=== PATIENT | female | born 1955 | race Caucasian/White ===

== ENCOUNTER 2019-08-17 16:06 | Inpatient (IN) ==
--- NOTE | 2019-08-17 16:14 | PROVIDER DOCUMENTATION ---
HPI-Screening - General Chief Complaint: Back Pain Stated Complaint: BACK PAIN LEG PAIN FEET PAIN Time Seen by Provider: 08/17/19 16:10 Source: patient Allergies/Adverse Reactions: Allergies Allergy/AdvReac Type Severity Reaction Status Date / Time NSAIDS (Non-Steroidal AdvReac SWELLING Verified 12/23/18 16:15 Anti-Inflamma Home Medications: Home Medication List Medication Instructions Recorded Confirmed Last Taken Type Tiotropium [place] Inhaler 2 puff INH DAILY 04/17/15 02/16/19 01/11/17 06:00 History [Spiriva] ATORVAstatin [Lipitor] 80 mg PO QAM 01/08/17 02/16/19 01/11/17 06:00 History Diltiazem HCl [Cartia Xt] 240 mg PO DAILY 01/08/17 02/16/19 01/11/17 06:00 History Multivitamin with Minerals 1 each PO DAILY 01/08/17 02/16/19 01/11/17 06:00 History [Multiple Vitamin] Pantoprazole [Protonix] 40 mg PO DAILY 01/08/17 02/16/19 01/11/17 06:00 History Aspirin 325 mg PO DAILY 02/16/19 02/16/19 Unknown History Isosorbide Mononitrate [Isosorbide 30 mg PO DAILY 02/16/19 02/16/19 Unknown History Mononitrate ER] Nitroglycerin 0.4 mg SUBLINGUAL PRN PRN 02/16/19 02/16/19 Unknown History Patient arrived via EMS?: No HPI: Patient is a 64 yowf who presents to the ED with multiple complaints. States she has had generalized weakness, dizziness, lower back pain, a cough, and bilateral calf and foot pain. Physical Exam-Screening - CONSTITUTIONAL General Appearance: alert, no apparent distress. negative: lethargic, slow to respond - HEAD, EARS, NOSE, MOUTH & THROAT HENMT: normocephalic/atraumatic - RESPIRATORY Respiratory: lungs clear, normal breath sounds, increased rate (tachypnea noted on exam). negative: stridor, wheezing - CARDIOVASCULAR Cardiovascular: no murmur (systolic) Screening Depart - Departure ED Screening Disposition: Continued in ED for Treatment (sepsis orders initiated by prepress proofer due to triage VS.) Referrals and Follow-Ups: Cade Vera MD [Primary Care Provider] - Attestation - Physician/ ZI Attestation Patient care was provided by Advanced Practice Provider:: Yes Advanced Practice Provider:: Nai Newberry Advanced Practice Provider documentation review:: The Mid-level provider documentation, treatment plan and medical decision making was reviewed by the physician who agrees with all treatment and medical decision making by the MLP. The physician spent face to face time with patient:: No Advanced Practice Provider documentation review:: Supervising physician onsite and consulted in the evaluation and care of this patient. The physician did not have a face to face encounter with the patient.
--- NOTE | 2019-08-17 16:38 | Diag Imaging Result Doc PS360 ---
EXAM: CHEST-2 VIEWS 08/17/2019 HISTORY: cough, weakness, dizziness TECHNIQUE: PA and lateral chest COMMENT: There is calcification of the aorta. There are calcified miliary nodules throughout both lungs. There are some coronary calcification. There are larger granulomata present in the right lower lobe and left upper lobe. Compared to the previous examination of 10/31/2018 there has been no significant change. IMPRESSION: Granulomatous changes and atherosclerosis. No evidence of acute disease. Electronically signed by Miah Augustine 08/17/2019 4:36 PM
[2019-08-17 16:48] LABS: BASO# 0.04 X1000 (0.0-0.2); BASO% 0.5 % (0.0-0.8); EOS# 0.07 X1000 (0.0-0.7); EOS% 0.9 % (0.0-10.0); HEMATOCRIT 21.2 % (37.0-47.0); IMM GRAN# 0.03 X1000 (0.0-0.04); IMM GRAN% 0.4 % (0.0-0.5); LYMPH# 2.19 X1000 (1.2-3.4); LYMPH% 27.3 % (20.5-51.1); MCHC 27.8 g/dL (33-37); MCV 75.4 FL (81-99); MONO# 0.74 X1000 (0.11-0.59); MONO% 9.2 % (1.7-9.3); MPV 10.5 FL (7.4-10.4); NEUT# 4.95 X1000 (1.4-6.5); NEUT% 61.7 % (42.2-75.2); PLT 198 X1000 (130-400); RBC 2.81 XMIL (4.2-5.4); RDW 20.1 % (11.5-14.5); WBC 8.02 X1000 (4.8-10.8)
[2019-08-17 16:50] LABS: HEMOGLOBIN 5.9 g/dL (12.0-16.0)
[2019-08-17 16:51] LABS: INR 1.12; PROTIME 14.6 Seconds (11.0-16.0)
[2019-08-17] MEDS ORDERED: NS 500 ML IV ONE (16:51)
[2019-08-17 16:52] LABS: PTT 30.5 Seconds (22.3-41.8)
[2019-08-17 17:02] LABS: AGAP 16; ALB/GLOB RATIO 1.8; ALBUMIN 4.1 g/dL (3.5-5.0); ALKALINE PHOSPHATASE 133 U/L (32-104); BUN 24 mg/dL (8-22); CALCIUM 9.7 mg/dL (8.8-10.2); CHLORIDE 104 mmol/L (98-107); CK PROFILE 164 U/L (24-173); COSMO 283; CREATININE 0.9 mg/dL (0.5-0.9); ESTIMATED GFR > 60; GLUCOSE 91 mg/dL (70-104); GOT 18 U/L (10-30); GPT 8 U/L (10-36); POTASSIUM 3.8 mmol/L (3.5-5.1); SODIUM 140 mmol/L (136-145); TCO2 20 mmol/L (25-35); TOTAL BILIRUBIN 0.51 mg/dL (0.20-1.00); TOTAL PROTEIN 6.4 g/dL (6.3-8.3)
--- NOTE | 2019-08-17 17:03 | EKG Report ---
Test Performed on : 08/17/2019 4:22:19 PM Test Reason : dizziness Blood Pressure : / mmHG Vent. Rate : 090 BPM Atrial Rate : 090 BPM P-R Int : 134 ms QRS Dur : 088 ms QT Int : 378 ms P-R-T Axes : 066 009 076 degrees QTc Int : 462 ms Normal sinus rhythm. Nonspecific ST and T wave abnormality Abnormal ECG When compared with ECG of 16-FEB-2019 14:51, Nonspecific T wave abnormality, worse in Lateral leads Unconfirmed Result
[2019-08-17 17:12] LABS: ANISOCYTOSIS 1+; LARGE PLATELETS OCCASIONAL; LYMPHS 18 % (21-51); MONO 5 % (1-9); SEGS 76 % (42-75)
[2019-08-17 17:13] LABS: HYPOCHROM 1+; TARGET CELLS OCCASIONAL
[2019-08-17 17:24] LABS: URINE SOURCE CLEAN CATCH
[2019-08-17 17:29] LABS: BILIRUBIN URINE NEGATIVE (NEGATIVE); BLOOD URINE NEGATIVE (NEGATIVE); COLOR YELLOW; GLUCOSE URINE NEGATIVE (NEGATIVE); KETONE URINE NEGATIVE (NEGATIVE); LEUKOCYTES URINE LARGE (NEGATIVE); NITRITE URINE POSITIVE (NEGATIVE); PH URINE 6.5; PROTEIN URINE TRACE mg/dL (NEGATIVE); TURBIDITY URINE CLEAR (CLEAR); UROBILINOGEN URINE NORMAL (NORMAL)
[2019-08-17 17:30] LABS: UR EPITHELIAL CELLS <10 /HPF (<10); URINE BACTERIA 4+ /HPF; URINE RBC <10 /HPF (<10); URINE WBC 20-40 /HPF (<10)
[2019-08-17] MEDS ORDERED: ROCEPHIN IV ONE (17:33)
[2019-08-17] MEDS ORDERED: NS 1,000 ML IV ONE (17:33)
[2019-08-17] MEDS ORDERED: PROTONIX 80 MG in NS 80 ML IV ONE (17:45)
--- NOTE | 2019-08-17 18:03 | PROVIDER DOCUMENTATION ---
This chart was entered by Citlalli Alvarez Scribe, acting as scribe for Chiquita Hairston MD. HPI-General Adult - General Chief Complaint: Back Pain Stated Complaint: BACK PAIN LEG PAIN FEET PAIN Time Seen by Provider: 08/17/19 16:10 Source: patient Allergies/Adverse Reactions: Patient Allergies Allergy/AdvReac Type Severity Reaction Status Date / Time NSAIDS (Non-Steroidal AdvReac SWELLING Verified 08/17/19 17:09 Anti-Inflamma Home Medications: Home Medication List Medication Instructions Recorded Confirmed Last Taken Type Tiotropium [place] Inhaler 2 puff INH DAILY 04/17/15 08/17/19 08/17/19 08:00 History [Spiriva] ATORVAstatin [Lipitor] 80 mg PO QAM 01/08/17 08/17/19 08/16/19 20:00 History Diltiazem HCl [Cartia Xt] 240 mg PO DAILY 01/08/17 08/17/19 08/17/19 07:00 History Pantoprazole [Protonix] 40 mg PO DAILY 01/08/17 08/17/19 08/17/19 07:00 History Isosorbide Mononitrate [Isosorbide 30 mg PO DAILY 02/16/19 08/17/19 08/17/19 07:00 History Mononitrate ER] Clopidogrel [Plavix] 75 mg PO DAILY 08/17/19 08/17/19 08/17/19 07:00 History - History of Present Illness -Gen Adult Nature of Presenting Problems: Patient is a 64 year old female who presents with multiple complaints. Patient states symptoms of back pain, bilateral leg pain, dizziness and weakness. Denies shortness of breath. Location of Pain/Injury: reports: back, lower extremity (bilateral lower legs) Pain Radiation: reports: no radiation Quality of Pain: reports: aching Severity: reports: mild Onset/Duration: reports: unsure Timing: reports: still present Context/Activities at Onset: reports: light activity Modifying Factors: worse with: other (walking) Associated Symptoms: reports: dizziness, weakness Similar Symptoms Previously?: Yes Recently seen or treated by another doctor?: No Review of Systems - Adult - REVIEW OF SYSTEMS - ADULT Constitutional: reports: no symptoms reported Eyes: reports: no symptoms reported Ears, Nose, Mouth & Throat: reports: no symptoms reported Cardiovascular: reports: no symptoms reported Respiratory: reports: no symptoms reported Gastrointestinal: reports: no symptoms reported Genitourinary: reports: no symptoms reported Musculoskeletal: reports: see HPI, back pain, muscle weakness, other (bilateral lower leg pain). denies: muscle aches Integumentary: reports: no symptoms reported Neurological: reports: see HPI, dizziness/vertigo. denies: headache/migraines, syncope Psychiatric: reports: no symptoms reported Endocrine: reports: no symptoms reported Hematologic/Lymphatic: reports: no symptoms reported Allergic/Immunologic: reports: no symptoms reported All Other Systems: Reviewed and Negative Past History - Adult - PAST MEDICAL HISTORY-ADULT Review of Records: reports: Old Records Reviewed, Nursing Assessment Review, Medications Reviewed, Social history reviewed & non-contributory. Major Childhood Illnesses: reports: denies history Cardiovascular: reports: cardiac disease, HTN, [place] Respiratory: reports: asthma, COPD Gastrointestinal: reports: denies history Obstetrical/Gynecological: reports: denies history Genitourinary: reports: denies history Musculoskeletal: reports: denies history Neurological: reports: denies history Psychiatric: reports: denies history Endocrine/Immune: reports: denies history Other Conditions: reports: denies history - PRIOR SURGERIES/PROCEDURES Surgical/Procedure History: reports: reviewed, not pertinent - IMMUNIZATION STATUS Childhood Immunizations: See Nurse Assessment Flu Vaccine: See Nurse Assessment - FAMILY HISTORY Family History: reviewed, not pertinent - SOCIAL HISTORY Smoking: cigarettes, less than 1 pack/day Provider spent 3-5 mins advising pt. on dangers of tobacco.: Discussed manners to quit use, and f/u contacts for add'l counseling. Alcohol Use Frequency: sober (former use) Physical Exam-General - PHYSICAL EXAM-ADULT Initial Vital Signs Reviewed: Yes - CONSTITUTIONAL General Appearance: alert, no apparent distress. negative: lethargic - HEAD, EARS, NOSE, MOUTH & THROAT HENMT: normocephalic/atraumatic, other (poor dentition). negative: angioedema - RESPIRATORY Respiratory: chest non-tender, lungs clear, normal breath sounds. negative: crackles, wheezing - CARDIOVASCULAR Cardiovascular: normal peripheral pulses, regular rate, rhythm. negative: tachycardia - GASTROINTESTINAL (ABDOMEN) Abdominal Exam: normal bowel sounds, non tender, soft. negative: rigid - GENITOURINARY Rectal Exam: hemorrhoids (external). negative: black stool, blood streaked stool, tenderness - MUSCULOSKELETAL Back Exam: normal inspection. negative: ecchymosis, vertebral tenderness Extremity: non-tender, normal inspection. negative: calf tenderness, erythema, swelling - SKIN Integumentary: normal color, normal turgor, warm/dry. negative: ecchymosis - NEUROLOGIC Neurologic: grossly normal, no motor/sensory deficits. negative: aphasia, facial droop - PSYCHIATRIC Psych/Mental Status: normal mood/affect, oriented x 3. negative: anxious Progress - PLAN OF CARE/RESULTS Progress/Plan/Lab Results: Vital Signs - 8 hr 08/17/19 16:08 Temperature 97.8 F Pulse Rate 104 H Respiratory Rate 22 Blood Pressure 159/50 O2 Sat by Pulse Oximetry 100 Orders Category Date Time Status Cardiac Monitoring DIRECTED Care 08/17/19 16:15 Active IV Insertion ORDERED Care 08/17/19 16:15 Active Notify MD of + Sepsis Screen NOW Care 08/17/19 16:15 Active Notify Physician As Ordered Care 08/17/19 16:15 Active Orthostatic Vital Signs NOW Care 08/17/19 16:17 Active CHEST-2 VIEWS [RAD] Stat Exams 08/17/19 16:16 Completed BLOOD CULTURE [BLDCUL] Stat Lab 08/17/19 16:15 Uncollected CBC WITH DIFF [HEME] Stat Lab 08/17/19 16:18 Results CK PROFILE [SP CHEM] Stat Lab 08/17/19 16:18 Received COMPREHENSIVE METABOLIC PANEL [CHEM] Stat Lab 08/17/19 16:18 Received LACTATE, PLASMA [CHEM] Lab 08/17/19 16:15 Uncollected LACTATE, PLASMA [CHEM] Lab 08/17/19 19:15 Uncollected LACTATE, PLASMA [CHEM] Lab 08/17/19 22:15 Uncollected MAGNESIUM [CHEM] Stat Lab 08/17/19 16:17 Uncollected PROTIME WITH INR [COAG] Stat Lab 08/17/19 16:18 Received PTT [COAG] Stat Lab 08/17/19 16:18 Received TROPONIN T Stat Lab 08/17/19 16:18 Received URINALYSIS W/POSS RFLX CULT [URINALYSIS] Stat Lab 08/17/19 16:15 Uncollected Oxygen Device Stat Oth 08/17/19 16:15 Completed EKG [EKG] Stat Ther 08/17/19 16:17 Ordered Result Diagrams: 08/17/19 16:18 08/17/19 16:18 - EKG 1 Time of EKG reading by physician:: 16:22 EKG Read and Signed by:: Chiquita Hairston EKG Interpretation (*Must complete 3 of following elements*): Abnormal Rate: 90 Rhythm: normal sinus rhythm [place]: normal [place] Interval: normal Comments: nonspecific ST and T wave abnormality. Departure - Departure Date of Disposition Decision: 08/17/19 Time of Disposition Decision: 17:46 DIAGNOSIS: Anemia Qualifiers: Anemia type: unspecified type Qualified Code(s): D64.9 - Anemia, unspecified UTI (urinary tract infection) Qualifiers: Urinary tract infection type: site unspecified Hematuria presence: without hematuria Qualified Code(s): N39.0 - Urinary tract infection, site not specified Disposition: ADMITTED INPATIENT 09 Certified Medical Emergency: Emergent Condition: Good Referrals and Follow-Ups: Cade Vera MD [Primary Care Provider] - - Critical Care Note This patient required my direct & personal management of CC.: No Attestation - Physician/ ZI Attestation Patient care was provided by Advanced Practice Provider:: No The physician spent face to face time with patient:: Yes Advanced Practice Provider documentation review:: Supervising physician onsite and consulted in the evaluation and care of this patient. The physician did have a face to face encounter with the patient. This chart was documented by the indicated scribe, (Citlalli Alvarez Scribe) and accurately reflects the services I performed and decisions made by Yovanny chan Mai Huu, MD, as attested by the provider's signature.
[2019-08-17] MEDS ORDERED: NS 50 ML ONE (18:28)
[2019-08-17] MEDS ORDERED: MORPHINE IV ONE (18:40)
[2019-08-17] MEDS: PROTONIX 80 MG in NS 80 ML IV SCH (18:41)
[2019-08-17] MEDS ORDERED: ZOFRAN IV PRN (18:50)
[2019-08-17 20:42] LABS: RETIC% 1.75 % (0.8-2.1); RETIC-HE 16.9 PG (28.2-36.6)
--- NOTE | 2019-08-17 21:26 | HISTORY AND PHYSICAL ---
ADDENDUM: I have seen and examined Ms. Joens today in the emergency room. She presented because of lower back pain and also generalized fatigue, shortness of breath, dizziness upon standing up. Upon presenting to the emergency room, she was evaluated. Her vitals were stable except for pulse of 104. She is orthostatic negative. On her laboratory data, I found out that her hemoglobin was 5.9. Ms. Jnoes has been treated in the past for GI bleed due to gastric AVMs. She said every now and then, she sees her stool being dark/blood in the stool, but that has not happened recently. Currently, her vitals are blood pressure of 159/50, pulse of 104, respirations 22, temperature 97.8 degrees. Physical exam for the most part is unremarkable. Her labs have also been reviewed. As I said, her hemoglobin is 5.9, MCV is 75, white cell count and platelets normal. Chemistry is also within normal range. ASSESSMENT: 1. Symptomatic anemia. 2. Severe microcytic anemia, most likely due to anemia of chronic gastrointestinal blood loss. 3. History of gastric arteriovenous malformations. 4. Clinical volume depletion. 5. History of coronary artery disease, status post coronary artery bypass graft. 6. Chronic pain disorder with chronic lower back pain. Patient uses ibuprofen intermittently at home. We have advised her to stop using nonsteroidal anti-inflammatory medications since those could be potential cause of her gastrointestinal bleed. Ms. Jones is also on clopidogrel which could probably potentiate the gastrointestinal bleed. For now, we are going to keep her n.p.o., continue her with intravenous fluids. She has been grouped and crossmatched for 2 units of packed red blood cells. She is to continue on Protonix drip and we will re-evaluate her in the morning with a repeat hemoglobin and hematocrit. She will be pending a consult by GI. Please refer to the details of the History and Physical that has been dictated by the nurse practitioner in the chart. cc: Aquiles Benoit MD
[2019-08-17] MEDS: NS 1,000 ML IV SCH (21:39)
--- NOTE | 2019-08-17 21:52 | HISTORY AND PHYSICAL ---
PRIMARY CARE PROVIDER: EMRE Bolivar. CHIEF COMPLAINT: Lower back pain, bilateral calf pain, frequent urination, shortness of breath, dizziness, off balance. HISTORY OF PRESENT ILLNESS: Ms. Jones is a 64-year-old female who carries a past medical history of GI bleed secondary to AV malformations x2, COPD, chronic pain disorder, hypothyroidism, coronary artery disease status post [place] x2, status post CABG, cirrhosis, carotid artery disease, status post right and left carotid endarterectomy, who came to the ED with multiple complaints today complaining of lower back pain, bilateral calf pain, trouble ambulating, gives out easy, complains of always being short of breath; however, it has become worse dizziness and off balance, frequent urination. She reported a month ago she had some dark tarry stools. She saw a GI doctor, unsure which , on July 30 and per her account was given a clear report. She also complains of a sore mouth, hard of hearing out of her left side. She hears better out of her right ear. Workup in the ED revealed an hemoglobin and hematocrit of 5.9, 21.2. All other laboratory data was essentially unremarkable. Her urinalysis showed UTI with 4+ bacteria, 20 to 40 WBCs, large leukocytes and positive for nitrites. She was typed and screened. We will do 2 units of blood. She was initiated on IV antibiotics as well as IV Protonix and a GI consult and we placed her in the ICU. Continue IV fluids and NPO status. PAST MEDICAL HISTORY: 1. Coronary artery disease status post [place] x2 and CABG. 2. COPD. 3. Carotid artery disease, status post right and left carotid endarterectomies. 4. GI bleed in the past secondary to AVMs x2. 5. Chronic pain disorder. 6. Cirrhosis. 7. Dyslipidemia. 8. Hypothyroidism. 9. COPD. 10. 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 She hears better on the right. 11. 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 12. Tobacco use and abuse. 13. Chronic kidney disease. PAST SURGICAL HISTORY: 1. CABG. 2. Spinal surgery. 3. Gallbladder surgery. 4. Right middle finger cancer removal x2. 5. Two EGDs for cauteries of AVM. 6. Right and left carotid endarterectomies. 7. Coronary stenting. 8. Right shoulder surgery. ALLERGIES: NSAIDs. FAMILY HISTORY: Positive for CAD in a father in the mid 50s, at the age of 62. SOCIAL HISTORY: She continues to be a smoker, smokes less than a half pack per day has done so since the age of 23. No alcohol or illicit drug use. REVIEW OF SYSTEMS: Completely negative except for those mentioned in HPI. PHYSICAL EXAMINATION: VITAL SIGNS: Temperature is 97.8 degrees, heart rate 104, respirations 22, blood pressure 159/50, O2 is 100% on room air. GENERAL: Ms. Jones is a hard of hearing, 64-year-old female who looks older than her stated age. She is lying on the stretcher in no acute distress. HEENT: Atraumatic, normocephalic. PERRL. Mucous membranes are dry. CARDIOVASCULAR: S1, S2 appreciated. No murmurs, gallops, or rubs noted. RESPIRATORY: Lung sounds clear bilaterally. GI: Is soft, nontender, nondistended. Positive bowel sounds in 4 quadrants. EXTREMITIES: Lower extremities are negative for edema. SKIN: Pale, dry, intact. She also has some bruising noted to her upper extremities. NEUROLOGIC: No focal deficits noted. Again, she is hard of hearing. She hears better out of her right ear. DIAGNOSTIC DATA: Chest x-ray: Granulomatosis changes and atherosclerosis. No evidence of acute disease. LABORATORY DATA: White count 8, H H 5.9 and 21. Platelet count 198,000. Chemistry: Sodium 140, potassium 3.8, BUN 24, creatinine 0.9, blood glucose is 91, magnesium 1.9. Plasma lactate 2.6. Urinalysis 4+ bacteria. WBC 20 to 40, large leukocytes, positive for nitrites. ASSESSMENT AND PLAN: 1. Upper gastrointestinal bleed. The patient has a history of arteriovenous malformations in the past that have had to be cauterized twice. We will type and screen and transfuse with 2 units, place her in the intensive care unit, initiate her on a Protonix drip. Consult Gastroenterology. Hemodynamically, she is currently stable. We will recheck her H H in the a.m. 2. Urinary tract infection. She was given a dose of IV Rocephin. We will check a urine culture. Continue IV antibiotics. She does complain of frequent urination, but no dysuria. Continue on IV fluids. 3. Chronic obstructive pulmonary disease without exacerbation. We will do supplemental O2 breathing treatments p.r.n. 4. Known coronary artery disease. The patient does not complain of any chest pain. 5. Chronic pain syndrome. We will do IV pain regimen. 6. Acute blood loss anemia secondary to #1. 7. Continued tobacco use and abuse. Patient will need continued education on smoking cessation as well as the means to quit. 8. Hypothyroidism. 9. Dyslipidemia. 10. Further recommendation to follow physician evaluation, laboratory and diagnostic data. Dictated by EMRE Vargas for Aquiles Benoit MD cc: MD Merry Landry CRNP
[2019-08-18] MEDS: PROTONIX 80 MG in NS 80 ML IV SCH ×2 (04:00→15:21)
[2019-08-18 06:52] LABS: BASO# 0.03 X1000 (0.0-0.2); BASO% 0.5 % (0.0-0.8); EOS# 0.15 X1000 (0.0-0.7); EOS% 2.6 % (0.0-10.0); IMM GRAN# 0.02 X1000 (0.0-0.04); IMM GRAN% 0.3 % (0.0-0.5); LYMPH# 1.53 X1000 (1.2-3.4); LYMPH% 26.7 % (20.5-51.1); MCH 23.4 PG (27-31); MCHC 29.6 g/dL (33-37); MCV 78.9 FL (81-99); MONO% 10.5 % (1.7-9.3); MPV 11.2 FL (7.4-10.4); NEUT# 3.41 X1000 (1.4-6.5); NEUT% 59.4 % (42.2-75.2); PLT 134 X1000 (130-400); RBC 3.42 XMIL (4.2-5.4); RDW 19.9 % (11.5-14.5); WBC 5.74 X1000 (4.8-10.8)
[2019-08-18 07:25] LABS: AGAP 13; ALB/GLOB RATIO 1.6; ALBUMIN 3.6 g/dL (3.5-5.0); ALKALINE PHOSPHATASE 117 U/L (32-104); BUN 17 mg/dL (8-22); CALCIUM 8.6 mg/dL (8.8-10.2); CHLORIDE 110 mmol/L (98-107); COSMO 284; CREATININE 0.7 mg/dL (0.5-0.9); ESTIMATED GFR > 60; GLUCOSE 80 mg/dL (70-104); GOT 16 U/L (10-30); GPT 7 U/L (10-36); MAGNESIUM 1.9 mg/dL (1.5-2.7); POTASSIUM 3.3 mmol/L (3.5-5.1); SODIUM 142 mmol/L (136-145); TCO2 19 mmol/L (25-35); TOTAL BILIRUBIN 1.85 mg/dL (0.20-1.00); TOTAL PROTEIN 5.9 g/dL (6.3-8.3)
[2019-08-18 09:18] LABS: IRON SATURATION 97 %; TIBC 414 ug/dL; TOTAL IRON 403 ug/dL (49-151); UNBOUND IRON 11 ug/dL (112-346)
[2019-08-18 09:27] LABS: FERRITIN 19 ng/mL (13-150)
[2019-08-18] MEDS: MORPHINE IV PRN ×2 (09:37→17:57)
[2019-08-18] MEDS: NICODERM PATCH TD SCH (11:52)
[2019-08-18] MEDS ORDERED: ROCEPHIN 1 GM in NS 50 ML IV ONE (13:04)
[2019-08-18] MEDS ORDERED: XYLOCAINE-MPF 2% ONE (14:01)
[2019-08-18] MEDS ORDERED: DIPRIVAN 1% ONE ×2 (14:01→14:13)
[2019-08-18] MEDS ORDERED: EPINEPHRINE SYRINGE ONE (14:05)
--- NOTE | 2019-08-18 14:28 | ENDOSCOPY OPERATIVE NOTE ---
[facility] ENDOSCOPY OPERATIVE NOTE , EGD PROCEDURE REPORT EXAM DATE: 08/18/2019 PATIENT NAME: Sarah Jones ATTENDING: Damion Hobson MD MR#: [id number] REFERRING PHYSICIAN: : 1955 CASE#: [id number] STATUS: inpatient INDICATIONS: The patient is a 64 yr old female here for an EGD due to acute post hemorrhagic anemia and melena. PROCEDURE PERFORMED: EGD w/ control of bleeding MEDICATIONS: Per Anesthesia CONSENT: The patient understands the risks and benefits of the procedure and understands that these r isks include, but are not limited to: sedation, allergic reaction, infection, perforation and/or bleeding. Alternative means of evaluation and treatment include, among others: physical exam, x-rays, and/or surgical intervention. The patient elects to proceed with this endoscopic procedure. DESCRIPTION OF PROCEDURE: During intra-op preparation period all mechanical and medical equipment was checked for proper function. Hand hygiene and appropriate measures for infection prevention was taken. After the risks, benefits and alternatives of the procedure were thoroughly explained, Informed consent was verified, confirmed and timeout was successfully executed by the treatment team. The patient was anesthetized with topical anesthesia and the [id number] ([id number]) endoscope was introduced through the mouth and advanced to the second portion of the duoden um. Retroflexion was performed in the stomach and revealed no abnormalities. The gastroscope was then slowly withdraw n and removed. ESOPHAGUS: The mucosa of the esophagus appeared normal. STOMACH: Three spider-like and round arteriovenous malformations measuring 5mm in size were found in the gastric fundus and gastric body. Monopolar cautery with a 7Fr heater probe was applied to the sites for 10 seconds using 25 wong power. Moderate pressure was applied to the cautery site with good treatment effect. The stomach o therwise appeared normal. DUODENUM: The duodenal mucosa showed no abnormalities. ADVERSE EVENTS: There were no complications. IMPRESSIONS: 1. The mucosa of the esophagus appeared normal 2. Three arteriovenous malformations measuring 5mm in size were found in the gastric fundus and james jarred body; Monopolar cautery with a 7Fr heater probe was applied to the sites for 10 secs; with good treatment effect 3. The stomach otherwise appeared normal 4. The duodenal mucosa showed no abnormalities RECOMMENDATIONS: 1. Resume pre-procedure medications 2. Resume previous diet 3. Transfer to ICU Damion Hobson MD eSigned: Damion Hobson MD 08/18/2019 2:27 PM CPT CODES: 42282 Upper gastrointestinal endoscopy including esophagus, stomach, and either the du odenum and/or jejunum as appropriate; with control of bleeding, any method ICD CODES: 285.1 Acute posthemorrhagic anemia 578.1 Blood in stool 747.61 Gastrointestinal vessel anomaly The ICD and CPT codes recommended by this software are interpretations from the data that the [facility] staff has captured with the software. The verification of the translation of this report to the ICD and CPT co main and modifiers is the sole responsibility of the health care institution and practicing physician where this report was generated. [employer] will not be held responsible for the validity of the ICD and CPT codes i ncluded on this report. A assumes no liability for data contained or not contained herein. CPT is a registered tra [employer]ark of the [employer]. PATIENT NAME: Sarah Jones MR#: [id number]
[2019-08-18] MEDS: NS 1,000 ML IV SCH (15:22)
[2019-08-18] MEDS ORDERED: TYLENOL PO PRN (17:25)
[2019-08-18] MEDS: PROTONIX IV SCH (17:58)
--- NOTE | 2019-08-18 18:40 | PROGRESS NOTE ---
DATE: 08/18/2019 SUBJECTIVE: This morning, Ms. Jones refers to be doing well. She thinks she is feeling a little stronger. She did say, however, that she has been having some burning on urination, and from home she was having urinary frequency. Her urinalysis over here is quite pathological with positive nitrates, large leukocytes, and this morning her culture is growing gram negative tomy. I think she is symptomatic, and she will need to be treated. OBJECTIVE: Vital signs: Blood pressure is 131/87, pulse of 81, respirations 20, temperature is 98.1 degrees. Patient is saturating 99% on room air. General: Ms. Jones is a 64-year-old elderly female. She was in bed. She did not seem to be in any cardiopulmonary distress. Mucosa is pink after 2 PRBC transfusions. Chest: Good air entry bilaterally. There were no crepitations, no rhonchi. Cardiovascular: Regular rate and rhythm. There is a 2/6 early systolic murmur in the aortic region which radiates to the neck. There is an old sternotomy scar on the anterior chest wall. Gastrointestinal: Abdomen is soft, nontender. Bowel sounds present. Central nervous system: Patient is awake, alert, and oriented. LABORATORY DATA: WBC is 5.74, hemoglobin is up to 8.0, platelet count of 134,000. Chemistry is also reviewed. Chloride is 110, potassium is 3.3, bicarb is 19. Renal function is normal. Bilirubin is slightly elevated. I think it is related to the transfusion. Folate is normal. Ferritin is 19. Iron is 403. I think that is probably from the transfused sample. So far, urine culture is showing gram-negative tomy. MEDICATIONS: The patient's medications have also been reviewed. She is still on PPI drip, normal saline at 50 mL/h, and ceftriaxone has just been started. ASSESSMENT: 1. Symptomatic anemia on presentation. Patient is status post 2 packed red blood cell transfusions. Hemoglobin is improved to 8 this morning. 2. Severe microcytic anemia with iron deficiency likely due to chronic gastrointestinal blood loss. The patient is status post 2 packed red blood cell transfusions. Iron has been replaced with transfusions, and patient will have esophagogastroduodenoscopy this morning. 3. History of gastric arteriovenous malformations noted. 4. Clinical volume depletion, improved. 5. History of coronary artery disease status post coronary artery bypass graft, currently asymptomatic. 6. Chronic pain disorder with chronic lower back pain. The patient was using multiple doses of ibuprofen at home, and I think that could potentially cause some of her gastrointestinal bleed. 7. Gram-negative tomy urinary tract infection. We started her on ceftriaxone and will be pending the identification and sensitivity. 8. Tobacco use and abuse. Ms. Jones has been counseled, and she has been started on nicotine patch. Today I think Ms. Jones is doing well. She is pending esophagogastroduodenoscopy. We will continue with the current proton pump inhibitor drip until after the esophagogastroduodenoscopy and determine the next action pending the result. She has been started on ceftriaxone for her urinary tract infection. I think she is hemodynamically stable so we are going to transfer her to the medical floor after the esophagogastroduodenoscopy. cc: Aquiles Benoit MD
--- NOTE | 2019-08-18 19:29 | GASTROENTEROLOGY CONSULTATION ---
DATE: 08/18/2019 REASON FOR CONSULTATION: Anemia, melena. HISTORY OF PRESENT ILLNESS: This is a 64-year-old, female, who per records has a history of GI bleeding secondary to arteriovenous malformations. By our records, she was last seen in the hospital in 2012, by Dr. Ho. I do not see where she has had a recent EGD or colonoscopy. The patient does not remember when those last were. Patient has reported over the last month having dark black stools. She has reported being dizzy and weak over the last several weeks. She denies chest pain, but has reported some shortness of breath with exertion. She also reports leg and calf pain. On evaluation, she was found to be significantly anemic and has received 2 units of packed red blood cells. PAST MEDICAL HISTORY: Coronary artery disease, history of [place] and CABG, COPD, carotid artery disease, history of right and left carotid endarterectomies, history of AVMs and GI bleed in the past, chronic pain disorder, cirrhosis, dyslipidemia, hypothyroidism, history of tobacco abuse and alcohol use, apparent history of drug use and had been in a rehab. PAST SURGICAL HISTORY: CABG, spinal surgery, cholecystectomy, right middle finger cancer removed, history of EGDs and AVM cauteries in the past, right and left carotid endarterectomies, cardiovascular stents, right shoulder surgery. ALLERGIES: NSAIDs causing swelling. HOME MEDICATIONS: Lipitor 80 mg daily, Plavix 75 mg daily, Cartia 240 mg daily, isosorbide 30 mg daily, Protonix 40 mg daily, Spiriva inhaler daily. SOCIAL HISTORY: Smoker of about a half a pack of cigarettes daily. Apparently, she has had history of alcohol and drug use in the past. REVIEW OF SYSTEMS: Per history of present illness. PHYSICAL EXAMINATION: Vital Signs: Temperature 98.4, pulse 77, respirations 16, blood pressure 136/62. General: Patient is awake and alert. No acute distress. Abdomen: Full, slightly distended, but positive bowel sounds, and soft. Cardiovascular: Regular rate and rhythm. Respiratory: Lung sounds with some congestion. She has a cough. Extremities: No lower extremity edema noted. Neurological: Cranial nerves 2-12 grossly intact. DIAGNOSTIC RESULTS/LABORATORY: Hematology: WBC 5.74, hemoglobin 8.0, hematocrit 27.0, MCV 78.9, platelet 134,000. Coagulation, ProTime 14.6, INR 1.12, PTT 30.5. Chemistry: Sodium 142, potassium 3.3, chloride 110, CO2 of 19, BUN 17, creatinine 0.7, glucose 80, calcium 8.6, magnesium 1.9. Iron 403, TIBC 414, percent saturation 97. Total bilirubin 1.85, AST 16, ALT 7, alkaline phosphatase 117. ASSESSMENT: 1. Melena. 2. Anemia. 3. History of gastric arteriovenous malformations in the past. 4. Coronary artery disease, history of coronary artery bypass grafting. 5. Chronic obstructive pulmonary disease. PLAN: Continue current medications. Patient has received 2 units of packed red blood cells. Continue to monitor for any signs of active bleeding. Monitor hemoglobin and hematocrit, and transfuse further packed red blood cells if needed. We will plan for EGD today. Further plans to be made according to findings. I have discussed this case with Dr. Hobson. Dictated by EMRE Henry for Damion Hobson MD cc: EMRE Joseph MD
[2019-08-19] MEDS: MORPHINE IV PRN ×5 (00:09→23:46)
[2019-08-19] MEDS ORDERED: VASELINE TOP PRN (00:28)
[2019-08-19] MEDS: PROTONIX IV SCH (05:35)
[2019-08-19 06:13] LABS: AGAP 12; ALB/GLOB RATIO 1.5; ALBUMIN 3.3 g/dL (3.5-5.0); ALKALINE PHOSPHATASE 110 U/L (32-104); BUN 12 mg/dL (8-22); CALCIUM 8.3 mg/dL (8.8-10.2); CHLORIDE 109 mmol/L (98-107); COSMO 278; CREATININE 0.7 mg/dL (0.5-0.9); ESTIMATED GFR > 60; GLUCOSE 84 mg/dL (70-104); GOT 17 U/L (10-30); GPT 5 U/L (10-36); MAGNESIUM 1.8 mg/dL (1.5-2.7); PHOSPHORUS 3.2 mg/dL (2.7-4.5); POTASSIUM 3.5 mmol/L (3.5-5.1); SODIUM 140 mmol/L (136-145); TCO2 19 mmol/L (25-35); TOTAL BILIRUBIN 0.44 mg/dL (0.20-1.00); TOTAL PROTEIN 5.5 g/dL (6.3-8.3)
[2019-08-19 07:01] LABS: BASO# 0.04 X1000 (0.0-0.2); BASO% 0.8 % (0.0-0.8); EOS# 0.19 X1000 (0.0-0.7); EOS% 3.8 % (0.0-10.0); HEMATOCRIT 26.9 % (37.0-47.0); HEMOGLOBIN 7.9 g/dL (12.0-16.0); IMM GRAN# 0.03 X1000 (0.0-0.04); IMM GRAN% 0.6 % (0.0-0.5); LYMPH# 1.08 X1000 (1.2-3.4); LYMPH% 21.8 % (20.5-51.1); MCH 23.4 PG (27-31); MCHC 29.4 g/dL (33-37); MCV 79.6 FL (81-99); MONO# 0.49 X1000 (0.11-0.59); MONO% 9.9 % (1.7-9.3); MPV 11.1 FL (7.4-10.4); NEUT# 3.13 X1000 (1.4-6.5); NEUT% 63.1 % (42.2-75.2); PLT 120 X1000 (130-400); RBC 3.38 XMIL (4.2-5.4); RDW 20.2 % (11.5-14.5); WBC 4.96 X1000 (4.8-10.8)
[2019-08-19] MEDS: SPIRIVA INH SCH (08:03)
[2019-08-19] MEDS: ROCEPHIN 1 GM in NS 50 ML IV SCH (08:13)
[2019-08-19] MEDS: CARDIZEM CD PO SCH (08:14)
[2019-08-19] MEDS: IMDUR PO SCH (08:14)
[2019-08-19] MEDS: NICODERM PATCH TD SCH (08:14)
[2019-08-19] MEDS: NS 1,000 ML IV SCH (12:42)
--- NOTE | 2019-08-19 17:12 | PROGRESS NOTE ---
DATE: 08/19/2019 SUBJECTIVE: This morning, Ms. Jones refers to be doing a lot better. She has not had any vomiting or any dark stool. OBJECTIVE: Vital Signs: Blood pressure is 133/44, pulse of 68, respirations 18, temperature 98.3 degrees. General: Ms. Jones is a 64-year-old elderly female. She is in bed, in no distress. HEENT: Mucosa is pink and moist. Anicteric. Acyanotic. Neck: Supple. Chest: Good air entry bilateral. There are no crepitations. No rhonchi. Cardiovascular: Regular rate and rhythm. There is a 2/6 aortic stenosis murmur. There is an old sternotomy scar on the anterior chest wall. Gastrointestinal: Abdomen is soft, nontender. Bowel sounds present. Central Nervous System: Patient is awake, alert, and oriented. There is no focal neurological deficit. LABORATORY DATA: WBC is 4.96, hemoglobin is 7.9, platelet count of 120,000. Chemistry is also reviewed, for most part unremarkable. The patient underwent EGD yesterday, which she was found to have AVMs in the stomach. ASSESSMENT AND PLAN: 1. Symptomatic anemia on presentation. The patient is status post 2 packed red blood cells transfusion. Hemoglobin and hematocrit are improved and remained stable. 2. Severe microcytic anemia due to iron deficiency from chronic gastrointestinal bleed. 3. Gastric arteriovenous malformations, status post cauterization. 4. History of coronary artery disease, status post coronary artery bypass grafting, currently asymptomatic. 5. Gram-negative tomy urinary tract infection. The patient is on ceftriaxone. We are still pending the identification and sensitivity. 6. Tobacco use and abuse. The patient has been counseled. 7. Chronic pain disorder with chronic lower back pain. The patient is on pain medicine. SUMMARY: In general, Ms. Jones is doing a lot better. Hemoglobin and hematocrit remained stable. Her hydration status also significantly improved. We are going to transfer her from the ICU to the regular medical floor. We have switched her Protonix to p.o., and we will be pending the gram- negative tomy to switch her antibiotics to something oral. Ms. Jones is a potential discharge tomorrow. cc: Aquiles Benoit MD
[2019-08-20] MEDS: MORPHINE IV PRN ×2 (04:43→09:46)
[2019-08-20 05:30] LABS: HEMATOCRIT 26.7 % (37.0-47.0); HEMOGLOBIN 7.8 g/dL (12.0-16.0); MCH 23.7 PG (27-31); MCHC 29.2 g/dL (33-37); MCV 81.2 FL (81-99); MPV 9.9 FL (7.4-10.4); RBC 3.29 XMIL (4.2-5.4); RDW 21.1 % (11.5-14.5); WBC 6.1 X1000 (4.8-10.8)
[2019-08-20] MEDS ORDERED: PROTONIX PO SCH (07:00)
[2019-08-20] MEDS: SPIRIVA INH SCH (08:08)
[2019-08-20] MEDS: NS 1,000 ML IV SCH (09:48)
[2019-08-20] MEDS: NICODERM PATCH TD SCH (09:51)
[2019-08-20] MEDS: CARDIZEM CD PO SCH (09:51)
[2019-08-20] MEDS: ROCEPHIN 1 GM in NS 50 ML IV SCH (09:52)
[2019-08-20] MEDS: IMDUR PO SCH (09:52)
[2019-08-20] MEDS ORDERED: INVANZ 1 GM/NS 1 GM/50 ML IVPB IV ONE (11:03)
[2019-08-20 11:39] VITALS: BP 106/44
[2019-08-20] MEDS ORDERED: MIRALAX PO SCH (12:15)
[2019-08-20] MEDS ORDERED: LIPITOR PO SCH (21:00)
--- NOTE | 2019-08-21 18:08 | DISCHARGE SUMMARY ---
ADMISSION DATE: 08/17/2019 DISCHARGE DATE: 08/20/2019 DISPOSITION: Is home. FOLLOW-UP: Will be Dr. Bhupendra Vera. CONSULTATION DURING THIS ADMISSION: GI was consulted. The patient was seen by Dr. Hobson. INVASIVE PROCEDURES DONE DURING THIS ADMISSION: EGD was done. Findings revealed AVMs in the gastric fundus. Monopolar cautery was applied with good treatment effect. ADMISSION DIAGNOSES: 1. Upper gastrointestinal bleed. 2. Urinary tract infection. 3. Chronic obstructive pulmonary disease. 4. Chronic pain syndrome. 5. Hypothyroidism. DIAGNOSES AT THE TIME OF DISCHARGE: 1. Symptomatic anemia on presentation. The patient is status post 2 packed red blood cell transfusions. 2. Severe microcytic anemia due to iron deficiency from chronic gastrointestinal bleed. 3. Gastric arteriovenous malformations. The patient is status post esophagogastroduodenoscopy with cauterization. 4. History of coronary artery disease status post coronary artery bypass grafting, currently asymptomatic. 5. Escherichia coli extended spectrum beta-lactamases urinary tract infection. The patient was given a dose of a dose of ertapenem and has been transitioned to p.o. Bactrim which seems to be sensitive. 6. Tobacco use and abuse. The patient has been counseled. 7. Chronic pain disorder with chronic lower back pain. 8. Hypothyroidism. DISCHARGE MEDICATIONS: 1. Atorvastatin 80 mg p.o. q.a.m. 2. Diltiazem 240 p.o. daily. 3. Isosorbide 30 mg p.o. daily. 4. Clopidogrel 75 mg p.o. daily. 5. MiraLAX 17 g p.o. daily. 6. Pantoprazole 40 mg p.o. daily. 7. Iron sulfate 325 p.o. b.i.d. 8. Bactrim 1 tab b.i.d. 9. Folic acid 1 mg p.o. daily. PRESENTING COMPLAINT: Was lower back pain, frequent urination, dizziness. HISTORY OF PRESENTING COMPLAINT: Ms. Jones is a 64-year-old female who is known to have AVMs in the past, came in because of some generalized weakness, dizziness and some urinary frequency as well. She was evaluated and was found to have an hemoglobin of 5.9. She was also with microcytosis on her on her studies. Iron studies reveals severe iron deficiency. GI was consulted. The patient was seen by Dr. Hobson. A decision was made to do an EGD, which was successfully done. The patient was found to have AVMs in the gastric fundus. Cauterization was done. Postprocedure Ms. Jones remained stable. H H was followed up twice. It remained 7.8. Ms. Jones also did complain of some urinary symptoms, so a culture was done. The patient was initially started on ceftriaxone. The culture came back positive for ESBL E coli. She has been given a dose of ertapenem and she will be discharged on Bactrim. She is going to follow up with her primary care doctor as well as with Dr. Hobson. TIME SPENT FOR DISCHARGE: Is 36 minutes. cc: MD Bhupendra Bullock MD Raphael K. Quansah, MD
== END 2019-08-20 17:50 | disposition home or self-care (01) | DRG 378 ==
LOC: ED 16:06 → ICU 18:40 → 1N 08-19 18:00
PROVIDERS: ATTEND Internal Medicine
PROC: EN.HEAT (2019-08-18 14:00)